=== PATIENT | female | born 1955 | race Caucasian/White ===

== ENCOUNTER 2017-08-22 21:54 | Emergency (ER) | payer BC ==
--- NOTE | 2017-08-22 23:25 | ED ---
Throat Pain/Nasal Congestion - HPI Summary HPI Summary: Complains of sudden onset flashers and floaters in left eye today. Denies trauma, foreign body, pain, vision loss, REEDER, fever, ocular discharge. Patient reading book while waiting in exam room. Does not wear contact lens, wears prescription glasses. Last eye exam just over one year ago. Denies history of ocular disease. Appt with ophthalmology tomorrow morning 8 AM. Medical history is none. - History of Current Complaint Chief Complaint: EDEyeProblem Time Seen by Provider: 08/22/17 22:09 Hx Obtained From: Patient - Allergies/Home Medications Allergies/Adverse Reactions: Allergies Allergy/AdvReac Type Severity Reaction Status Date / Time amoxicillin Allergy Rash Verified 08/22/17 21:58 Sulfa (Sulfonamide Allergy Unknown Verified 08/22/17 21:58 Antibiotics) Reaction Details PMH/Surg Hx/FS Hx/Imm Hx Cardiovascular History: Reports: Other Cardiovascular Problems/Disorders - 2006 takotsubo depression Sensory History: Reports: Hx Contacts or Glasses Opthamlomology History: Reports: Hx Contacts or Glasses - Cancer History Hx Chemotherapy: No Hx Radiation Therapy: No Infectious Disease History: No Infectious Disease History: Denies: Traveled Outside the [place] in Last 30 Days - Social History Alcohol Use: Weekly Substance Use Type: Reports: None Smoking Status (MU): Never Smoked Tobacco Review of Systems Constitutional: Negative Eyes: Negative ENT: Negative Cardiovascular: Negative Respiratory: Negative Gastrointestinal: Negative Genitourinary: Negative Musculoskeletal: Negative Skin: Negative Neurological: Negative Psychological: Normal All Other Systems Reviewed And Are Negative: Yes Physical Exam - Summary Physical Exam Summary: Visual field intact. Normal visual confrontation exam. EOM's intact. Pupils equal and reactive bilaterally. Patient reading book without problem. No injection Vital Signs On Initial Exam: Initial Vitals Temp Pulse Resp BP Pulse Ox 97.8 F 88 16 160/81 99 08/22/17 21:57 08/22/17 21:57 08/22/17 21:57 08/22/17 21:57 08/22/17 21:57 Diagnostics - Vital Signs Vital Signs Temp Pulse Resp BP Pulse Ox 08/22/17 21:57 97.8 F 88 16 160/81 99 - Laboratory Lab Statement: Any lab studies that have been ordered have been reviewed, and results considered in the medical decision making process. EENT Course/Dx - Course Course Of Treatment: Complains of sudden onset flashers and floaters in left eye today. Denies trauma, foreign body, pain, vision loss. Patient reading book while waiting in exam room. Visual field intact. Normal visual confrontation exam. EOM's intact. Pupils equal and reactive bilaterally. Patient reading book without problem. Patient has appointment with ophthalmology tomorrow morning at 8 AM. - Diagnoses Provider Diagnoses: Change in vision Discharge - Sign-Out/Discharge Documenting (check all that apply): Discharge/Admit/Transfer - Discharge Plan Condition: Stable Disposition: HOME Patient Education Materials: Visual Floaters (ED) Referrals: Stephie Piña MD [Primary Care Provider] - Additional Instructions: Follow-up with your ophthalmology appointment tomorrow at 8 am. Return to the ED for any new or worsening symptoms - Billing Disposition and Condition Condition: STABLE Disposition: HOME
[2017-08-22 23:44] VITALS: BP 126/83
== END 2017-08-22 23:45 | disposition home or self-care (01) ==
LOC: ED 21:54
DX: H53.9 Unspecified visual disturbance (principal); H43.392 Other vitreous opacities, left eye; Z88.0 Allergy status to penicillin; Z88.2 Allergy status to sulfonamides
CPT/HCPCS: 99282